=== PATIENT | female | born 1955 | race Caucasian/White ===

== ENCOUNTER 2016-12-15 09:15 | Inpatient (IN) | payer BC ==
[~2016-12-15 09:15] MED LIST: Lactated Ringers 1,000 ML IV SCH; Lidocaine 1%/Sod Bicarbonate in NS 8.4% 1 ML Syringe PRN; Sodium Chloride 0.9% 10 ML Syringe FLUSH PRN
[2016-12-15] MEDS ORDERED: Bupivacaine 0.25% 30 ML SDV ONE (09:16)
[2016-12-15] MEDS ORDERED: ceFAZolin 1 GM Vial ONE ×2 (09:16→09:31)
[2016-12-15] MEDS ORDERED: Vancomycin 1 GM SDV ONE (09:16)
[2016-12-15] MEDS ORDERED: Propofol 200 MG/20 ML SDV ONE ×2 (09:31→09:59)
[2016-12-15] MEDS ORDERED: Lactated Ringers 1,000 ML ONE ×2 (09:31→12:02)
[2016-12-15] MEDS ORDERED: fentaNYL 100 MCG/2 ML SDV ONE (09:31)
[2016-12-15] MEDS ORDERED: Midazolam 1 MG/ML 2 ML SDV ONE (09:32)
[2016-12-15] MEDS ORDERED: Morphine PF 10 MG/10 ML SDV ONE (09:34)
--- NOTE | 2016-12-15 09:39 | PCM.PREANE ---
Preanesthetic Assessment - Anesthesia/Transfusion/Family Hx Anesthesia History: Prior Anesthesia Reaction Type of Anesthesia Reaction: Excessive Nausea/Vomiting Transfusion History: No Prior Transfusion(s) - Review of Systems General: No Symptoms Pulmonary: No Symptoms Cardiovascular: No Symptoms Gastrointestinal: No Symptoms Neurological: No Symptoms Other: Reports: Easy Bruising - Physical Assessment NPO Status Date: 12/14/16 NPO Status Time: 23:00 Pulse: 60 O2 Sat by Pulse Oximetry: 96 Respiratory Rate: 20 Blood Pressure: 139/77 Temperature: 98.5 F Height: 5 ft Weight: 57 kg ASA Class: 1 Mental Status: Alert & Oriented x3 Airway Class: Mallampati = 1 Dentition: Reports: Normal Dentition Thyro-Mental Finger Breadths: 3 Mouth Opening Finger Breadths: 3 ROM/Head Extension: Full Lungs: Clear to Auscultation, Normal Respiratory Effort Cardiovascular: Regular Rate, Regular Rhythm - Lab Values: 12/01/16 Hgb 14.4 Plt 224 BUN 14 Cr 0.80 Lytes WNL - Imaging/EKG Impressions: 12/01 EKG SB 57 - Allergies Allergies/Adverse Reactions: Allergies Allergy/AdvReac Type Severity Reaction Status Date / Time iodine Allergy Severe Rash Verified 12/12/16 13:34 - Blood Blood Available: No - Acknowledgements Anesthesia Type Planned: Spinal Pt an Appropriate Candidate for the Planned Anesthesia: Yes Alternatives and Risks of Anesthesia Discussed w Pt/Guardian: Yes Pt/Guardian Understands and Agrees with Anesthesia Plan: Yes PreAnesthesia Questionnaire HEENT History: Reports: Impaired Vision Cardiovascular History: Reports: None Respiratory History: Reports: None Gastrointestinal History: Reports: Other (See Below) Other Gastrointestinal History: , post operative nausea and vomiting Genitourinary History: Reports: Urinary Incontinence Other OB/BYN History: 3vaginal deliveries, uterine fibroids Musculoskeletal History: Reports: Osteoarthritis, Other (See Below) Other Musculoskeletal History: bulging of cerical intervertebreal disc Neurological History: Reports: None Psychiatric History: Reports: None Endocrine/Metabolic History: Reports: None Hematologic History: Reports: None Immunologic History: Reports: None Oncologic (Cancer) History: Reports: None Dermatologic History: Reports: Eczema - Past Surgical History Head Surgeries/Procedures: Reports: None HEENT Surgical History: Reports: Tonsillectomy Cardiovascular Surgical History: Reports: None Respiratory Surgical History: Reports: None GI Surgical History: Reports: Appendectomy, Colonoscopy, EGD Female Surgical History: Reports: Hysterectomy, Other (See Below) Other Female Surgeries/Procedures: bladder sling Endocrine Surgical History: Reports: None Neurological Surgical History: Reports: None Musculoskeletal Surgical History: Reports: Arthroscopic Knee, Knee Replacement Other Musculoskeletal Surgeries/Procedures:: rt partial knee replacement, R meniscus surgery Oncologic Surgical History: Reports: None - SUBSTANCE USE Smoking Status *Q: Never Smoker Tobacco Use Within Last Twelve Months: No Second Hand Smoke Exposure: No Days Per Week of Alcohol Use: 1 (couple times a month) Recreational Drug Use History: No - HOME MEDS Home Medications: Home Meds Ascorbate Calcium [Vitamin C] 500 mg PO DAILY 12/12/16 [History] Cholecalciferol (Vitamin D3) [Vitamin D3] 5,000 unit PO DAILY 12/12/16 [History] Ralph-3/DHA/Epa/Fish Oil [Ralph 3 500 Softgel] 1 cap PO DAILY 12/12/16 [History] - CURRENT (IN HOUSE) MEDS Current Meds: Current Medications Bisacodyl (Dulcolax) 5 mg PO DAILY PRN PRN Reason: Constipation Morphine Sulfate 8 mg/Epinephrine HCl 0.3 mg/Cefuroxime Sodium 750 mg/Ketorolac Tromethamine 30 mg/Sodium Chloride 27.9 ml 0 mg .XX ONETIME ONE Stop: 12/15/16 10:31 Cyclobenzaprine HCl (Flexeril) 10 mg PO TID PRN PRN Reason: Spasms Docusate Sodium (Colace) 100 mg PO BID [facility] Famotidine (Pepcid) 20 mg PO BID [facility] Lactated Ringer's (Ringers, Lactated) 1,000 mls @ 125 mls/hr IV ASDIRECTED [facility] Stop: 12/15/16 23:00 Cefazolin Sodium/Dextrose 2 gm (/ Premix) 50 mls @ 100 mls/hr IV Q8H [facility] Stop: 12/15/16 23:44 Lidocaine/Sodium Bicarbonate (Buffered Lidocaine 1% In Ns 8.4%) 0.25 ml .XX ONETIME PRN PRN Reason: Prior to IV Start Stop: 12/15/16 18:00 Magnesium Hydroxide (Milk Of Magnesia) 30 ml PO BID PRN PRN Reason: Constipation Morphine Sulfate (Morphine) 2 mg IVPUSH Q2H PRN PRN Reason: Breakthrough Pain Multivitamins (Thera) 1 each PO WITHBREAKFAST [facility] Naloxone HCl (Narcan) 0.1 mg IVPUSH Q5M PRN PRN Reason: Oversedation Ondansetron HCl (Zofran) 4 mg IVPUSH Q6H PRN PRN Reason: Nausea/Vomiting Oxycodone/Acetaminophen (Percocet 325-5 Mg) 1 - 2 tab PO Q4H PRN PRN Reason: Pain Rivaroxaban (Xarelto) 10 mg PO DAILY [facility] Senna (Senna) 8.6 mg PO BID PRN PRN Reason: Constipation Sodium Chloride (Saline Flush) 10 ml FLUSH ASDIRECTED PRN PRN Reason: Keep Vein Open Stop: 12/15/16 18:00 Discontinued Medications Bupivacaine HCl (Marcaine 0.25%) Confirm Administered Dose 30 ml .ROUTE .STK- MED ONE Stop: 12/15/16 09:17 Cefazolin Sodium (Ancef) Confirm Administered Dose 2 gm .ROUTE .STK-MED ONE Stop: 12/15/16 09:32 Cefazolin Sodium (Ancef) Confirm Administered Dose 2 gm .ROUTE .STK-MED ONE Stop: 12/15/16 09:17 Fentanyl (Sublimaze) Confirm Administered Dose 100 mcg .ROUTE .STK-MED ONE Stop: 12/15/16 09:32 Lactated Ringer's (Ringers, Lactated) Confirm Administered Dose 1,000 mls @ as directed .ROUTE .STK-MED ONE Stop: 12/15/16 09:32 Midazolam HCl (Versed 1 Mg/Ml) Confirm Administered Dose 2 mg .ROUTE .STK-MED ONE Stop: 12/15/16 09:33 Morphine Sulfate (Duramorph Pf) Confirm Administered Dose 10 mg .ROUTE .STK-MED ONE Stop: 12/15/16 09:35 Propofol (Diprivan 20 Ml) Confirm Administered Dose 200 mg .ROUTE .STK-MED ONE Stop: 12/15/16 09:32 Tranexamic Acid (Cyklokapron) Confirm Administered Dose 1,000 mg .ROUTE .STK- MED ONE Stop: 12/15/16 09:16 Vancomycin HCl (Vancomycin) Confirm Administered Dose 1 gm .ROUTE .STK-MED ONE Stop: 12/15/16 09:17
[2016-12-15] MEDS ORDERED: Phenylephrine 1% 10 MG/ML SDV ONE (10:53)
[2016-12-15] MEDS: Morphine 8 MG, EPINEPHrine 0.3 MG, Cefuroxime 750 MG, Ketorolac 30 MG, Sodium Chloride ... ONE ×10 (11:41→13:55)
[2016-12-15] MEDS ORDERED: Ondansetron 4 MG/2 ML SDV ONE (11:47)
[2016-12-15] MEDS ORDERED: Naloxone 0.4 MG/ML SDV IVPUSH PRN (12:00)
[2016-12-15] MEDS ORDERED: Morphine 2 MG/ML Syringe IVPUSH PRN (12:00)
[2016-12-15] MEDS ORDERED: Sennosides 8.6 MG Tab PO PRN (12:00)
[2016-12-15] MEDS ORDERED: Magnesium Hydroxide 400 MG/5 ML Susp 30 ML Cup PO PRN (12:00)
[2016-12-15] MEDS ORDERED: Bisacodyl 5 MG Tab PO PRN (12:00)
[2016-12-15] MEDS ORDERED: Cyclobenzaprine 10 MG Tab PO PRN (12:00)
--- NOTE | 2016-12-15 12:25 | PCM.POSTAN ---
POST ANESTHESIA ASSESSMENT - MENTAL STATUS Mental Status: Alert, Oriented - VITAL SIGNS Pulse Rate: 90 SaO2: 96 Resp Rate: 16 Blood Pressure: 87/58 Temperature: 97.7 C - RESPIRATORY Respiratory Status: Respiratory Rate WNL, Airway Patent, O2 Saturation Stable - CARDIOVASCULAR CV Status: Pulse Rate WNL, Blood Pressure Stable - GASTROINTESTINAL GI Status: No Symptoms - PAIN Pain Score: 0 - POST OP HYDRATION Hydration Status: Adequate & Stable
[2016-12-15] MEDS ORDERED: fentaNYL 100 MCG/2 ML SDV IVPUSH PRN (12:26)
[2016-12-15] MEDS ORDERED: HYDROmorphone 0.5 MG/0.5 ML Syringe IVPUSH PRN (12:26)
--- NOTE | 2016-12-15 13:32 | CR ---
Left knee: AP and lateral views of the left knee were obtained. Comparison: No previous knee study. Left knee prosthesis is seen. Components are aligned. Soft tissue air is noted compatible with the surgical procedure. Underlying bony structures are intact. Impression: 1. Satisfactory radiographic appearance of recently placed left knee prosthesis. Diagnostic code #2
[2016-12-15] MEDS: Ondansetron 4 MG/2 ML SDV IVPUSH PRN (15:05)
--- NOTE | 2016-12-15 15:14 | PCM.CONS ---
H&P History of Present Illness - General Date of Service: 12/15/16 Admit Problem/Dx: Admission Diagnosis/Problem Admission Diagnosis/Problem Osteoarthritis of knee Source of Information: Patient, Old Records, RN History Limitations: Reports: No Limitations - History of Present Illness Initial Comments - Free Text/Narative: Meagan Manrique is a 61 yo female s/p left TKA with Dr. Toro this morning. Hospitalist service is consulted for postoperative medical management. PMH includes Impaired vision, prior post-operative N&V, urinary incontinence, osteoarthritis, bulging of cervical intervertebral disk and eczema. Thus far postoperatively she is resting comfortably, pain under good pain control. No nausea. No SOB, CP, palpiataitons. Left Knee Pain Score (Numeric/FACES): 4 (Controlled) - Related Data Allergies/Adverse Reactions: Allergies Allergy/AdvReac Type Severity Reaction Status Date / Time iodine Allergy Severe Rash Verified 12/15/16 10:29 Home Medications: Home Meds Ascorbate Calcium [Vitamin C] 500 mg PO DAILY 12/12/16 [History] Cholecalciferol (Vitamin D3) [Vitamin D3] 5,000 unit PO DAILY 12/12/16 [History] Odell-3/DHA/Epa/Fish Oil [Odell 3 500 Softgel] 1 cap PO DAILY 12/12/16 [History] Past Medical History HEENT History: Reports: Impaired Vision Cardiovascular History: Reports: None Respiratory History: Reports: None Gastrointestinal History: Reports: Other (See Below) Other Gastrointestinal History: post operative nausea and vomiting Genitourinary History: Reports: Urinary Incontinence Other OB/BYN History: 3vaginal deliveries, uterine fibroids Musculoskeletal History: Reports: Osteoarthritis, Other (See Below) Other Musculoskeletal History: bulging of cerical intervertebreal disc Neurological History: Reports: None Psychiatric History: Reports: None Endocrine/Metabolic History: Reports: None Hematologic History: Reports: None Immunologic History: Reports: None Oncologic (Cancer) History: Reports: None Dermatologic History: Reports: Eczema - Past Surgical History Head Surgeries/Procedures: Reports: None HEENT Surgical History: Reports: Tonsillectomy Cardiovascular Surgical History: Reports: None Respiratory Surgical History: Reports: None GI Surgical History: Reports: Appendectomy, Colonoscopy, EGD Female Surgical History: Reports: Hysterectomy, Other (See Below) Other Female Surgeries/Procedures: bladder sling Endocrine Surgical History: Reports: None Neurological Surgical History: Reports: None Musculoskeletal Surgical History: Reports: Arthroscopic Knee, Knee Replacement Other Musculoskeletal Surgeries/Procedures:: rt partial knee replacement, R meniscus surgery Oncologic Surgical History: Reports: None Social & Family History - Family History Psychiatric: Reports: None - Tobacco Use Smoking Status *Q: Never Smoker Second Hand Smoke Exposure: No - Caffeine Use Caffeine Use: Reports: Coffee - Alcohol Use Days Per Week of Alcohol Use: 1 (couple times a month) - Recreational Drug Use Recreational Drug Use: No Drug Use in Last 12 Months: No H&P Review of Systems - Review of Systems: Review Of Systems: See Below General: Reports: No Symptoms HEENT: Reports: No Symptoms Pulmonary: Reports: No Symptoms Cardiovascular: Reports: No Symptoms Gastrointestinal: Reports: No Symptoms Genitourinary: Reports: No Symptoms Musculoskeletal: Reports: Joint Pain Skin: Reports: No Symptoms Psychiatric: Reports: No Symptoms Neurological: Reports: No Symptoms Hematologic/Lymphatic: Reports: No Symptoms Immunologic: Reports: No Symptoms Exam - Exam Exam: See Below - Vital Signs Vital Signs: Last Vital Signs Temp 97.4 F 12/15/16 13:35 Pulse 69 12/15/16 13:35 Resp 14 12/15/16 13:35 BP 99/51 L 12/15/16 13:35 Pulse Ox 100 12/15/16 13:35 Weight: 125 lb 10.616 oz - Exam Quality Assessment: Supplemental Oxygen (1L), Urinary Catheter, DVT Prophylaxis General: Alert, Oriented, Cooperative HEENT: Conjunctiva Clear, EACs Clear, Hearing Intact, Mucosa Moist & [place], Nares Patent, Normal Nasal Septum, Posterior Pharynx Clear, Pupils Equal, Pupils Reactive Neck: Supple, Trachea Midline. No: JVD Lungs: Clear to Auscultation, Normal Respiratory Effort Cardiovascular: Regular Rate, Regular Rhythm GI/Abdominal Exam: Normal Bowel Sounds, Soft, Non-Tender, No Organomegaly, No Distention, No Abnormal Bruit, No Mass (Female) Exam: Deferred Rectal (Female) Exam: Deferred Back Exam: Normal Inspection, Full Range of Motion Extremities: Normal Inspection, Non-Tender, No Pedal Edema, Normal Capillary Refill, Limited Range of Motion, Other (Left leg bandaged. Dressing dry and intact ) Peripheral Pulses: 2+: Radial (L), Radial (R), Posterior Tibial (L), Posterior Tibial (R), Dorsalis Pedis (L), Dorsalis Pedis (R) Skin: Warm, Dry, Intact Neurological: Cranial Nerves Intact (grossly) Neuro Extensive - Mental Status: Alert, Oriented x3, Normal Mood/Affect, Normal Cognition, Memory Intact, Other ("sleepy") Neuro Extensive - Motor, Sensory, Reflexes: CN II-XII Intact Psychiatric: Alert, Normal Affect, Normal Mood Consult PN Assessment/Plan POD#: 0 Procedures: Procedures CHEST X-RAY 2VW FRONTAL&LATL (10/27/13) COMPLETE CBC W/AUTO DIFF WBC (10/27/13) CT THORAX W/O DYE (05/14/15) DXA BONE DENSITY AXIAL (05/04/15) EGD BIOPSY SINGLE/MULTIPLE (02/28/15) ELECTROCARDIOGRAM TRACING (10/27/13) EMERGENCY DEPT VISIT (10/27/13) FIBRIN DEGRADATION QUANT (10/27/13) MRI NECK SPINE W/O DYE (01/26/15) PARATHYRD PLANAR W/SPECT&CT (03/02/15) ROUTINE VENIPUNCTURE (10/27/13) TISSUE EXAM BY PATHOLOGIST (02/28/15) X-RAY EXAM UNILAT RIBS/CHEST (05/04/15) (1) Osteoarthritis SNOMED Code(s): 117565647 Code(s): M19.90 - UNSPECIFIED OSTEOARTHRITIS, UNSPECIFIED SITE Priority: High Current Visit: Yes Qualifiers: Osteoarthritis location: knee Osteoarthritis type: primary Laterality: left Qualified Code(s): M17.12 - Unilateral primary osteoarthritis, left knee (2) Status post total left knee replacement SNOMED Code(s): 0240356115143 Code(s): Z96.652 - PRESENCE OF LEFT ARTIFICIAL KNEE JOINT Priority: High Current Visit: Yes Problem List Initiated/Reviewed/Updated: Yes Plan: Acute: Post-Operative Care State - She is clinically stable - Continue to monitor for hemodynamic instability S/p Left Total Knee Arthroplasty - Stable - DVT and Pain Management as per primary team Hx/o left Knee Pain - Pain Management as per primary team Chronic: Urinary incontinence Osteoarthritis Bulging of cervical intervertebral disk Eczema Plan: She is clinically stable Routine AM labs Continue home meds PT/OT consult IS q2 awake Thank you for the opportunity to participate in the management of this patient. Requesting Provider: Dr. Muna Date Consult Requested: 12/15/16 Reason for Consult: Post-operative care Patient History Reviewed: Yes Admission H&P Reviewed: Yes
[2016-12-15] MEDS ORDERED: Scopolamine 1.5 MG Transdermal Patch TOP ONE (15:57)
[2016-12-15] MEDS: ceFAZolin 2 GM in Premix Bag 1 BAG IV SCH (17:48)
[2016-12-15] MEDS ORDERED: FLU Vacc QS 2017-18 (6mos UP)/PF 60 MCG/0.5 ML Syringe IM ONE (18:00)
[2016-12-15] MEDS ORDERED: Metoclopramide 10 MG/2 ML SDV IVPUSH ONE (18:43)
[2016-12-15] MEDS: Acetaminophen/oxyCODONE 325-5 MG Tab PO PRN (20:45)
[2016-12-15] MEDS: Famotidine 20 MG Tab PO SCH (20:45)
[2016-12-15] MEDS: Docusate Sodium 100 MG Cap PO SCH (20:45)
[2016-12-15] MEDS ORDERED: diphenhydrAMINE 50 MG/ML SDV IVPUSH ONE (21:00)
[2016-12-16] MEDS: ceFAZolin 2 GM in Premix Bag 1 BAG IV SCH ×2 (01:30→09:57)
[2016-12-16] MEDS: Acetaminophen/oxyCODONE 325-5 MG Tab PO PRN ×3 (02:22→12:26)
[2016-12-16] MEDS: Ondansetron 4 MG/2 ML SDV IVPUSH PRN ×2 (02:29→11:22)
[2016-12-16] MEDS ORDERED: Multivitamins,Therapeutic Tab PO SCH (07:00)
--- NOTE | 2016-12-16 08:39 | PCM.CONSN ---
- General Info Date of Service: 12/16/16 Admission Dx/Problem (Free Text): Admission Diagnosis/Problem Admission Diagnosis/Problem Osteoarthritis of knee POD #[address] Toro Doing well, pain controlled. No nausea; vomiting comes on suddenly but is not accompanied by nausea. Working with PT/OT. Plans for dc home today, she feels comfortable with this also. PT states doing very well. Functional Status: Reports: Pain Controlled, Tolerating Diet, Ambulating, Urinating, Incentive Spirometry. Denies: New Symptoms - Review of Systems General: Reports: No Symptoms HEENT: Reports: No Symptoms Pulmonary: Reports: No Symptoms Cardiovascular: Reports: No Symptoms Gastrointestinal: Reports: No Symptoms, Vomiting (occasional--improved from yesterday). Denies: Abdominal Pain, Nausea Genitourinary: Reports: No Symptoms Musculoskeletal: Reports: Leg Pain Skin: Reports: No Symptoms Neurological: Reports: No Symptoms Psychiatric: Reports: No Symptoms - Patient Data Vitals - Most Recent: Last Vital Signs Temp 97.7 F 12/16/16 07:43 Pulse 55 L 12/16/16 07:39 Resp 18 12/16/16 07:39 BP 116/86 12/16/16 07:39 Pulse Ox 100 12/16/16 08:22 Weight - Most Recent: 131 lb 11.2 oz I&O - Last 24 Hours: Intake & Output 12/15/16 12/16/16 12/16/16 22:59 06:59 14:59 Intake Total 1050 800 Output Total 1200 800 Balance -150 0 Lab Results Last 24 Hours: Laboratory Results - last 24 hr 12/16/16 12/16/16 Range/Units 06:50 06:50 WBC 11.46 H (3.98-10.04) K/mm3 RBC 3.89 L (3.98-5.22) M/mm3 Hgb 11.5 (11.2-15.7) gm/L Hct 36.3 (34.1-44.9) % MCV 93.3 (79.4-94.8) fl MCH 29.6 (25.6-32.2) pg MCHC 31.7 L (32.2-35.5) g/dl RDW Std Deviation 42.4 (36.4-46.3) fL Plt Count 181 L (182-369) K/mm3 MPV 10.7 (9.4-12.3) fl Neut % (Auto) 74.0 H (34.0-71.1) % Lymph % (Auto) 15.6 L (19.3-51.7) % Barron % (Auto) 10.0 (4.7-12.5) % Eos % (Auto) 0.1 L (0.7-5.8) Baso % (Auto) 0.1 (0.1-1.2) % Neut # (Auto) 8.48 H (1.56-6.13) K/mm3 Lymph # (Auto) 1.79 (1.18-3.74) K/mm3 Barron # (Auto) 1.15 H (0.24-0.36) K/mm3 Eos # (Auto) 0.01 L (0.04-0.36) K/mm3 Baso # (Auto) 0.01 (0.01-0.08) K/mm3 Sodium 140 (136-145) mEq/L Potassium 4.2 (3.5-5.1) mEq/L Chloride 104 (98-107) mEq/L Carbon Dioxide 31 (21-32) mEq/L Anion Gap 9.2 (5-15) BUN 9 (7-18) mg/dL Creatinine 0.7 (0.55-1.02) mg/dL Est Cr Clr Drug Dosing 62.16 mL/min Estimated GFR (MDRD) > 60 (>60) mL/min BUN/Creatinine Ratio 12.9 L (14-18) Glucose 102 (74-106) mg/dL Calcium 10.1 (8.5-10.1) mg/dL Total Bilirubin 0.5 (0.2-1.0) mg/dL AST 23 (15-37) U/L ALT 25 (14-59) U/L Alkaline Phosphatase 56 (46-116) U/L Total Protein 6.3 L (6.4-8.2) g/dl Albumin 3.2 L (3.4-5.0) g/dl Globulin 3.1 gm/dL Albumin/Globulin Ratio 1.0 (1-2) Med Orders - Current: Current Medications Bisacodyl (Dulcolax) 5 mg PO DAILY PRN PRN Reason: Constipation Cyclobenzaprine HCl (Flexeril) 10 mg PO TID PRN PRN Reason: Spasms Docusate Sodium (Colace) 100 mg PO BID [facility] Last Admin: 12/15/16 20:45 Dose: 100 mg Famotidine (Pepcid) 20 mg PO BID [facility] Last Admin: 12/15/16 20:45 Dose: 20 mg Cefazolin Sodium/Dextrose 2 gm (/ Premix) 50 mls @ 100 mls/hr IV Q8H [facility] Stop: 12/16/16 10:59 Last Admin: 12/16/16 01:30 Dose: 100 mls/hr Magnesium Hydroxide (Milk Of Magnesia) 30 ml PO BID PRN PRN Reason: Constipation Morphine Sulfate (Morphine) 2 mg IVPUSH Q2H PRN PRN Reason: Breakthrough Pain Last Admin: 12/16/16 07:06 Dose: 2 mg Multivitamins (Thera) 1 each PO WITHBREAKFAST [facility] Naloxone HCl (Narcan) 0.1 mg IVPUSH Q5M PRN PRN Reason: Oversedation Ondansetron HCl (Zofran) 4 mg IVPUSH Q6H PRN PRN Reason: Nausea/Vomiting Last Admin: 12/16/16 02:29 Dose: 4 mg Oxycodone/Acetaminophen (Percocet 325-5 Mg) 1 - 2 tab PO Q4H PRN PRN Reason: Pain Last Admin: 12/16/16 02:22 Dose: 2 tab Rivaroxaban (Xarelto) 10 mg PO DAILY [facility] Senna (Senna) 8.6 mg PO BID PRN PRN Reason: Constipation Discontinued Medications Bupivacaine HCl (Marcaine 0.25%) Confirm Administered Dose 30 ml .ROUTE .STK- MED ONE Stop: 12/15/16 09:17 Last Admin: 12/15/16 11:42 Dose: 30 ml Cefazolin Sodium (Ancef) Confirm Administered Dose 2 gm .ROUTE .STK-MED ONE Stop: 12/15/16 09:32 Last Admin: 12/15/16 11:38 Dose: 2 gm Cefazolin Sodium (Ancef) Confirm Administered Dose 2 gm .ROUTE .STK-MED ONE Stop: 12/15/16 09:17 Morphine Sulfate 8 mg/Epinephrine HCl 0.3 mg/Cefuroxime Sodium 750 mg/Ketorolac Tromethamine 30 mg/Sodium Chloride 27.9 ml 0 mg .XX ONETIME ONE Stop: 12/15/16 10:31 Last Admin: 12/15/16 13:55 Dose: Not Given Diphenhydramine HCl (Benadryl) 25 mg IVPUSH ONETIME ONE Stop: 12/15/16 21:01 Last Admin: 12/15/16 20:45 Dose: Not Given Fentanyl (Sublimaze) Confirm Administered Dose 100 mcg .ROUTE .STK-MED ONE Stop: 12/15/16 09:32 Fentanyl (Sublimaze) 50 mcg IVPUSH Q5M PRN PRN Reason: pain Stop: 12/15/16 14:30 Hydromorphone HCl (Dilaudid) 0.5 mg IVPUSH Q15M PRN PRN Reason: Pain (severe 7-10) Stop: 12/15/16 14:30 Lactated Ringer's (Ringers, Lactated) 1,000 mls @ 125 mls/hr IV ASDIRECTED [facility] Stop: 12/15/16 23:00 Last Admin: 12/15/16 09:35 Dose: 125 mls/hr Lactated Ringer's (Ringers, Lactated) Confirm Administered Dose 1,000 mls @ as directed .ROUTE .STK-MED ONE Stop: 12/15/16 09:32 Lactated Ringer's (Ringers, Lactated) Confirm Administered Dose 1,000 mls @ as directed .ROUTE .STK-MED ONE Stop: 12/15/16 12:03 Lidocaine/Sodium Bicarbonate (Buffered Lidocaine 1% In Ns 8.4%) 0.25 ml .XX ONETIME PRN PRN Reason: Prior to IV Start Stop: 12/15/16 18:00 Last Admin: 12/15/16 09:34 Dose: 0.25 ml Metoclopramide HCl (Reglan) 5 mg IVPUSH ONETIME ONE Stop: 12/15/16 18:44 Last Admin: 12/15/16 18:56 Dose: 5 mg Midazolam HCl (Versed 1 Mg/Ml) Confirm Administered Dose 2 mg .ROUTE .STK-MED ONE Stop: 12/15/16 09:33 Morphine Sulfate (Duramorph Pf) Confirm Administered Dose 10 mg .ROUTE .STK-MED ONE Stop: 12/15/16 09:35 Ondansetron HCl (Zofran) Confirm Administered Dose 4 mg .ROUTE .STK-MED ONE Stop: 12/15/16 11:48 Phenylephrine HCl (Jaime-Synephrine) Confirm Administered Dose 10 mg .ROUTE .STK- MED ONE Stop: 12/15/16 10:54 Propofol (Diprivan 20 Ml) Confirm Administered Dose 200 mg .ROUTE .STK-MED ONE Stop: 12/15/16 09:32 Propofol (Diprivan 20 Ml) Confirm Administered Dose 200 mg .ROUTE .STK-MED ONE Stop: 12/15/16 10:00 Scopolamine (Transderm-Scop) 1.5 mg TOP ONETIME ONE Stop: 12/15/16 15:58 Last Admin: 12/15/16 16:23 Dose: 1.5 mg Sodium Chloride (Saline Flush) 10 ml FLUSH ASDIRECTED PRN PRN Reason: Keep Vein Open Stop: 12/15/16 18:00 Tranexamic Acid (Cyklokapron) Confirm Administered Dose 1,000 mg .ROUTE .STK- MED ONE Stop: 12/15/16 09:16 Last Admin: 12/15/16 11:55 Dose: 1,000 mg Vancomycin HCl (Vancomycin) Confirm Administered Dose 1 gm .ROUTE .STK-MED ONE Stop: 12/15/16 09:17 Last Admin: 12/15/16 11:52 Dose: 1 gm - Exam Quality Assessment: Supplemental Oxygen, DVT Prophylaxis General: Alert, Oriented, Cooperative, No Acute Distress HEENT: Pupils Equal, EOMI, Mucous Membr. Moist/[place] Neck: Supple Lungs: Clear to Auscultation, Normal Respiratory Effort Cardiovascular: Regular Rate, Regular Rhythm GI/Abdominal Exam: Normal Bowel Sounds, Soft, Non-Tender (Female) Exam: Deferred Extremities: Other (teds/SCD's/ice) Peripheral Pulses: 2+: Dorsalis Pedis (L), Dorsalis Pedis (R) Skin: Warm, Dry Neurological: No New Focal Deficit Psy/Mental Status: Alert, Normal Affect, Normal Mood Consult PN Assessment/Plan POD#: 1 Procedures: Procedures CHEST X-RAY 2VW FRONTAL&LATL (10/27/13) COMPLETE CBC W/AUTO DIFF WBC (10/27/13) CT THORAX W/O DYE (05/14/15) DXA BONE DENSITY AXIAL (05/04/15) EGD BIOPSY SINGLE/MULTIPLE (02/28/15) ELECTROCARDIOGRAM TRACING (10/27/13) EMERGENCY DEPT VISIT (10/27/13) FIBRIN DEGRADATION QUANT (10/27/13) MRI NECK SPINE W/O DYE (01/26/15) PARATHYRD PLANAR W/SPECT&CT (03/02/15) ROUTINE VENIPUNCTURE (10/27/13) TISSUE EXAM BY PATHOLOGIST (02/28/15) X-RAY EXAM UNILAT RIBS/CHEST (05/04/15) (1) Status post total left knee replacement SNOMED Code(s): 0577246887972 Code(s): Z96.652 - PRESENCE OF LEFT ARTIFICIAL KNEE JOINT Priority: High Current Visit: Yes (2) Osteoarthritis SNOMED Code(s): 549462610 Code(s): M19.90 - UNSPECIFIED OSTEOARTHRITIS, UNSPECIFIED SITE Priority: High Current Visit: Yes Qualifiers: Osteoarthritis location: knee Osteoarthritis type: primary Laterality: left Qualified Code(s): M17.12 - Unilateral primary osteoarthritis, left knee (3) Gastritis and duodenitis SNOMED Code(s): 678425835 Code(s): K29.90 - GASTRODUODENITIS, UNSPECIFIED, WITHOUT BLEEDING Priority : Medium Current Visit: No (4) Gastric ulcer SNOMED Code(s): 333081127 Code(s): K25.9 - GASTRIC ULCER, UNSP ACUTE OR CHRONIC, W/O HEMOR OR PERF Priority: Medium Current Visit: No Qualifiers: Gastric ulcer chronicity: unspecified ulcer chronicity Gastric ulcer complication status: unspecified whether hemorrhage or perforation present Qualified Code(s): K25.9 - Gastric ulcer, unspecified as acute or chronic, without hemorrhage or perforation (5) Duodenal ulcer SNOMED Code(s): 34854068 Code(s): K26.9 - DUODENAL ULCER, UNSP ACUTE OR CHRONIC, W/O HEMOR OR PERF Priority: Medium Current Visit: No Problem List Initiated/Reviewed/Updated: Yes Plan: I/P: S/P Lt TKA- POD #1, Dr. Toro -Pain management and DVT prophylax per primary team/Ortho -PT/OT -RT/IS -Hgb 11.5 Hx of gastric/duodenal ulcer- avoid ASA-xarelto for DVT prophylax -Currently no abd pain -Postoperative vomiting, no nausea. Hgb stable. VSS. Close monitoring-- vomiting is improved from yesterday. Tolerated breakfast, no vomiting. Chronic: Urinary incontinence Bulging of cervical intervertebral disk Eczema Other: GI prophylax CM/SW for assist with DC planning. -Medically stable. Labs and VSS. OK from Hospitalist standpoint for DC home today if no persistent vomiting. Patient is full code status.
[2016-12-16] MEDS: Docusate Sodium 100 MG Cap PO SCH (08:51)
[2016-12-16] MEDS: Famotidine 20 MG Tab PO SCH (08:51)
[2016-12-16] MEDS ORDERED: Rivaroxaban 10 MG Tab PO SCH (09:00)
--- NOTE | 2016-12-16 10:50 | PCM48HPAN ---
Post Anesthesia Note - EVALUATION WITHIN 48HRS OF ANESTHETIC Vital Signs in Normal Range: Yes Patient Participated in Evaluation: Yes Respiratory Function Stable: Yes Airway Patent: Yes Cardiovascular Function Stable: Yes Hydration Status Stable: Yes Pain Control Satisfactory: Yes Nausea and Vomiting Control Satisfactory: No (Emesis about 20 min ago. Encourage sips and keep on top of meds) Mental Status Recovered: Yes
[2016-12-16 13:10] VITALS: BP 113/50
--- NOTE | 2016-12-17 08:04 | PCM.DCSUM1 ---
Discharge Summary - Hospital Course Brief History: Meagan is a 61 yo female who underwent left TKA with Dr. Toro on 12-15-2016. The procedure was completed under spinal anesthesia. The pt tolerated the procedure well and was admitted to the Medical-Surgical Unit. The pt's hospital course was uneventful. The pt's hemoglobin on POD#1 was 11.5. The pt participated in P.T. and O.T. and met inpatient therapy goals. The pt's surgical dressing remained clean and dry. On POD#1, Xarelto was initiated for VTE prophylaxis. SCDs and TEDs were also used. On POD#1, the pt was deemed appropriate for discharge to home with her . - Discharge Data Discharge Date: 12/16/16 Discharge Disposition: Home, Self-Care 01 Condition: Good - Patient Summary/Data Consults: Consultations 12/15/16 07:11 Consult to Physician [CONS] Routine OT Evaluation and Treatment [CONS] Routine 12/15/16 07:16 PT Evaluation and Treatment [CONS] Routine - Patient Instructions Diet: Usual Diet as Tolerated Activity: Apply Ice, As Tolerated, Elevate Extremity, Full Weight Bearing Driving: Do Not Drive Showering/Bathing: May Shower Wound/Incision Care: Keep Operative Site/Wound Site Clean and Dry, Do NOT Change Dressing Notify Provider of: Fever, Increased Pain, Swelling and Redness, Drainage, Nausea and/or Vomiting Other/Special Instructions: Please get up and moving around every hour while awake. This helps to prevent blood clots. Please use your walker and have help as needed. Take the Xarelto blood thinner medication daily. This also helps to prevent blood clots. Do the exercises you were taught in the Hospital. Schedule for P.T. Use the pain medication as needed. The medication may cause drowsiness and constipation. Contact your primary care provider for instructions if you are constipated. You may use a stool softener like docusate sodium or Colace 100mg twice daily and/or a laxative like Miralax daily for constipation. Use the ice machine often. Elevate the limb to decrease swelling. Keep the Mepilex dressing in place until follow-up at the Clinic. Notify the Clinic if the dressing is saturated. Wear the RALPH hose during the day and you may remove these at night. Eat a diet high in protein as this well help with healing. Schedule an appointment with your primary care provider for 'routine post-op care'. Call the Clinic with questions or concerns - [phone]. - Discharge Plan Prescriptions/Med Rec: Acetaminophen/oxyCODONE [Percocet 325-5 MG] 1 - 2 tab PO Q4H PRN #60 tablet PRN Reason: Pain Cyclobenzaprine [Flexeril] 10 mg PO Q8H PRN #40 tablet PRN Reason: muscle spasms Ondansetron [Zofran ODT] 4 mg PO Q6H PRN #20 tab.dis PRN Reason: Nausea Home Medications: Home Meds Ascorbate Calcium [Vitamin C] 500 mg PO DAILY 12/12/16 [History] Cholecalciferol (Vitamin D3) [Vitamin D3] 5,000 unit PO DAILY 12/12/16 [History] Jewett-3/DHA/Epa/Fish Oil [Jewett 3 500 Softgel] 1 cap PO DAILY 12/12/16 [History] Acetaminophen/oxyCODONE [Percocet 325-5 MG] 1 - 2 tab PO Q4H PRN #60 tablet 05/30 [Rx] Cyclobenzaprine [Flexeril] 10 mg PO Q8H PRN #40 tablet 12/16/16 [Rx] Docusate Sodium [Colace] 100 mg PO BID #60 cap 12/16/16 [Rx] Ondansetron [Zofran ODT] 4 mg PO Q6H PRN #20 tab.dis 12/16/16 [Rx] Rivaroxaban [Xarelto] 10 mg PO DAILY #28 tablet 12/16/16 [Rx] Patient Handouts: Rivaroxaban oral tablets, Total Knee Replacement, Care After , Ragx-my-Hdey, Total Knee Replacement, Whoj-pv-Dhyj, Knee Rehabilitation Guidelines Following Surgery Referrals: Mariah Cota PA-C [Physician [employer] Trol[employer] Inspecting Dispatcher] - (Please see Mariah Cota on Thursday12/23/16 at 9:15 AM and Thursday12/30/16 at 9:15 AM.) Danyell Rodgers PA-C [Primary Care Provider] - - Patient Data Vitals - Most Recent: Last Vital Signs Temp 98.1 F 12/16/16 13:07 Pulse 77 12/16/16 13:07 Resp 16 12/16/16 13:07 BP 113/50 L 12/16/16 13:07 Pulse Ox 98 12/16/16 13:07 Weight - Most Recent: 131 lb 11.2 oz I&O - Last 24 hours: Intake & Output 12/16/16 12/17/16 12/17/16 22:59 06:59 14:59 Intake Total 1040 Output Total 800 Balance 240 Med Orders - Current: Current Medications Discontinued Medications Bisacodyl (Dulcolax) 5 mg PO DAILY PRN PRN Reason: Constipation Bupivacaine HCl (Marcaine 0.25%) Confirm Administered Dose 30 ml .ROUTE .STK- MED ONE Stop: 12/15/16 09:17 Last Admin: 12/15/16 11:42 Dose: 30 ml Cefazolin Sodium (Ancef) Confirm Administered Dose 2 gm .ROUTE .STK-MED ONE Stop: 12/15/16 09:32 Last Admin: 12/15/16 11:38 Dose: 2 gm Cefazolin Sodium (Ancef) Confirm Administered Dose 2 gm .ROUTE .STK-MED ONE Stop: 12/15/16 09:17 Morphine Sulfate 8 mg/Epinephrine HCl 0.3 mg/Cefuroxime Sodium 750 mg/Ketorolac Tromethamine 30 mg/Sodium Chloride 27.9 ml 0 mg .XX ONETIME ONE Stop: 12/15/16 10:31 Last Admin: 12/15/16 13:55 Dose: Not Given Cyclobenzaprine HCl (Flexeril) 10 mg PO TID PRN PRN Reason: Spasms Diphenhydramine HCl (Benadryl) 25 mg IVPUSH ONETIME ONE Stop: 12/15/16 21:01 Last Admin: 12/15/16 20:45 Dose: Not Given Docusate Sodium (Colace) 100 mg PO BID [facility] Last Admin: 12/16/16 08:51 Dose: 100 mg Famotidine (Pepcid) 20 mg PO BID [facility] Last Admin: 12/16/16 08:51 Dose: 20 mg Fentanyl (Sublimaze) Confirm Administered Dose 100 mcg .ROUTE .STK-MED ONE Stop: 12/15/16 09:32 Fentanyl (Sublimaze) 50 mcg IVPUSH Q5M PRN PRN Reason: pain Stop: 12/15/16 14:30 Hydromorphone HCl (Dilaudid) 0.5 mg IVPUSH Q15M PRN PRN Reason: Pain (severe 7-10) Stop: 12/15/16 14:30 Lactated Ringer's (Ringers, Lactated) 1,000 mls @ 125 mls/hr IV ASDIRECTED [facility] Stop: 12/15/16 23:00 Last Admin: 12/15/16 09:35 Dose: 125 mls/hr Cefazolin Sodium/Dextrose 2 gm (/ Premix) 50 mls @ 100 mls/hr IV Q8H [facility] Stop: 12/16/16 10:59 Last Admin: 12/16/16 09:57 Dose: 100 mls/hr Lactated Ringer's (Ringers, Lactated) Confirm Administered Dose 1,000 mls @ as directed .ROUTE .STK-MED ONE Stop: 12/15/16 09:32 Lactated Ringer's (Ringers, Lactated) Confirm Administered Dose 1,000 mls @ as directed .ROUTE .STK-MED ONE Stop: 12/15/16 12:03 Lidocaine/Sodium Bicarbonate (Buffered Lidocaine 1% In Ns 8.4%) 0.25 ml .XX ONETIME PRN PRN Reason: Prior to IV Start Stop: 12/15/16 18:00 Last Admin: 12/15/16 09:34 Dose: 0.25 ml Magnesium Hydroxide (Milk Of Magnesia) 30 ml PO BID PRN PRN Reason: Constipation Metoclopramide HCl (Reglan) 5 mg IVPUSH ONETIME ONE Stop: 12/15/16 18:44 Last Admin: 12/15/16 18:56 Dose: 5 mg Midazolam HCl (Versed 1 Mg/Ml) Confirm Administered Dose 2 mg .ROUTE .STK-MED ONE Stop: 12/15/16 09:33 Morphine Sulfate (Morphine) 2 mg IVPUSH Q2H PRN PRN Reason: Breakthrough Pain Last Admin: 12/16/16 07:06 Dose: 2 mg Morphine Sulfate (Duramorph Pf) Confirm Administered Dose 10 mg .ROUTE .STK-MED ONE Stop: 12/15/16 09:35 Multivitamins (Thera) 1 each PO WITHBREAKFAST [facility] Last Admin: 12/16/16 09:04 Dose: 1 each Naloxone HCl (Narcan) 0.1 mg IVPUSH Q5M PRN PRN Reason: Oversedation Ondansetron HCl (Zofran) 4 mg IVPUSH Q6H PRN PRN Reason: Nausea/Vomiting Last Admin: 12/16/16 11:22 Dose: 4 mg Ondansetron HCl (Zofran) Confirm Administered Dose 4 mg .ROUTE .STK-MED ONE Stop: 12/15/16 11:48 Oxycodone/Acetaminophen (Percocet 325-5 Mg) 1 - 2 tab PO Q4H PRN PRN Reason: Pain Last Admin: 12/16/16 12:26 Dose: 2 tab Phenylephrine HCl (Jaime-Synephrine) Confirm Administered Dose 10 mg .ROUTE .STK- MED ONE Stop: 12/15/16 10:54 Propofol (Diprivan 20 Ml) Confirm Administered Dose 200 mg .ROUTE .STK-MED ONE Stop: 12/15/16 09:32 Propofol (Diprivan 20 Ml) Confirm Administered Dose 200 mg .ROUTE .STK-MED ONE Stop: 12/15/16 10:00 Rivaroxaban (Xarelto) 10 mg PO DAILY [facility] Last Admin: 12/16/16 08:51 Dose: 10 mg Scopolamine (Transderm-Scop) 1.5 mg TOP ONETIME ONE Stop: 12/15/16 15:58 Last Admin: 12/15/16 16:23 Dose: 1.5 mg Senna (Senna) 8.6 mg PO BID PRN PRN Reason: Constipation Sodium Chloride (Saline Flush) 10 ml FLUSH ASDIRECTED PRN PRN Reason: Keep Vein Open Stop: 12/15/16 18:00 Tranexamic Acid (Cyklokapron) Confirm Administered Dose 1,000 mg .ROUTE .STK- MED ONE Stop: 12/15/16 09:16 Last Admin: 12/15/16 11:55 Dose: 1,000 mg Vancomycin HCl (Vancomycin) Confirm Administered Dose 1 gm .ROUTE .STK-MED ONE Stop: 12/15/16 09:17 Last Admin: 12/15/16 11:52 Dose: 1 gm *Q Meaningful Use (DIS) - VTE *Q VTE Criteria *Q: - Stroke *Q Stroke Criteria *Q: - AMI *Q AMI Criteria *Q:
--- NOTE | 2016-12-17 08:06 | PCM.SURGPN ---
- General Info Date of Service: 12/16/16 POD#: 1 Functional Status: Reports: Pain Controlled, Tolerating Diet, Ambulating, Urinating, Incentive Spirometry - Review of Systems General: Denies: Fever, Chills Musculoskeletal: Reports: Other (The pt reports left knee pain is controlled.) - Patient Data Vitals - Most Recent: Last Vital Signs Temp 98.1 F 12/16/16 13:07 Pulse 77 12/16/16 13:07 Resp 16 12/16/16 13:07 BP 113/50 L 12/16/16 13:07 Pulse Ox 98 12/16/16 13:07 Weight - Most Recent: 131 lb 11.2 oz I&O - Last 24 Hours: Intake & Output 12/16/16 12/17/16 12/17/16 22:59 06:59 14:59 Intake Total 1040 Output Total 800 Balance 240 Med Orders - Current: Current Medications Discontinued Medications Bisacodyl (Dulcolax) 5 mg PO DAILY PRN PRN Reason: Constipation Bupivacaine HCl (Marcaine 0.25%) Confirm Administered Dose 30 ml .ROUTE .STK- MED ONE Stop: 12/15/16 09:17 Last Admin: 12/15/16 11:42 Dose: 30 ml Cefazolin Sodium (Ancef) Confirm Administered Dose 2 gm .ROUTE .STK-MED ONE Stop: 12/15/16 09:32 Last Admin: 12/15/16 11:38 Dose: 2 gm Cefazolin Sodium (Ancef) Confirm Administered Dose 2 gm .ROUTE .STK-MED ONE Stop: 12/15/16 09:17 Morphine Sulfate 8 mg/Epinephrine HCl 0.3 mg/Cefuroxime Sodium 750 mg/Ketorolac Tromethamine 30 mg/Sodium Chloride 27.9 ml 0 mg .XX ONETIME ONE Stop: 12/15/16 10:31 Last Admin: 12/15/16 13:55 Dose: Not Given Cyclobenzaprine HCl (Flexeril) 10 mg PO TID PRN PRN Reason: Spasms Diphenhydramine HCl (Benadryl) 25 mg IVPUSH ONETIME ONE Stop: 12/15/16 21:01 Last Admin: 12/15/16 20:45 Dose: Not Given Docusate Sodium (Colace) 100 mg PO BID [facility] Last Admin: 12/16/16 08:51 Dose: 100 mg Famotidine (Pepcid) 20 mg PO BID [facility] Last Admin: 12/16/16 08:51 Dose: 20 mg Fentanyl (Sublimaze) Confirm Administered Dose 100 mcg .ROUTE .STK-MED ONE Stop: 12/15/16 09:32 Fentanyl (Sublimaze) 50 mcg IVPUSH Q5M PRN PRN Reason: pain Stop: 12/15/16 14:30 Hydromorphone HCl (Dilaudid) 0.5 mg IVPUSH Q15M PRN PRN Reason: Pain (severe 7-10) Stop: 12/15/16 14:30 Lactated Ringer's (Ringers, Lactated) 1,000 mls @ 125 mls/hr IV ASDIRECTED [facility] Stop: 12/15/16 23:00 Last Admin: 12/15/16 09:35 Dose: 125 mls/hr Cefazolin Sodium/Dextrose 2 gm (/ Premix) 50 mls @ 100 mls/hr IV Q8H [facility] Stop: 12/16/16 10:59 Last Admin: 12/16/16 09:57 Dose: 100 mls/hr Lactated Ringer's (Ringers, Lactated) Confirm Administered Dose 1,000 mls @ as directed .ROUTE .STK-MED ONE Stop: 12/15/16 09:32 Lactated Ringer's (Ringers, Lactated) Confirm Administered Dose 1,000 mls @ as directed .ROUTE .STK-MED ONE Stop: 12/15/16 12:03 Lidocaine/Sodium Bicarbonate (Buffered Lidocaine 1% In Ns 8.4%) 0.25 ml .XX ONETIME PRN PRN Reason: Prior to IV Start Stop: 12/15/16 18:00 Last Admin: 12/15/16 09:34 Dose: 0.25 ml Magnesium Hydroxide (Milk Of Magnesia) 30 ml PO BID PRN PRN Reason: Constipation Metoclopramide HCl (Reglan) 5 mg IVPUSH ONETIME ONE Stop: 12/15/16 18:44 Last Admin: 12/15/16 18:56 Dose: 5 mg Midazolam HCl (Versed 1 Mg/Ml) Confirm Administered Dose 2 mg .ROUTE .STK-MED ONE Stop: 12/15/16 09:33 Morphine Sulfate (Morphine) 2 mg IVPUSH Q2H PRN PRN Reason: Breakthrough Pain Last Admin: 12/16/16 07:06 Dose: 2 mg Morphine Sulfate (Duramorph Pf) Confirm Administered Dose 10 mg .ROUTE .STK-MED ONE Stop: 12/15/16 09:35 Multivitamins (Thera) 1 each PO WITHBREAKFAST [facility] Last Admin: 12/16/16 09:04 Dose: 1 each Naloxone HCl (Narcan) 0.1 mg IVPUSH Q5M PRN PRN Reason: Oversedation Ondansetron HCl (Zofran) 4 mg IVPUSH Q6H PRN PRN Reason: Nausea/Vomiting Last Admin: 12/16/16 11:22 Dose: 4 mg Ondansetron HCl (Zofran) Confirm Administered Dose 4 mg .ROUTE .STK-MED ONE Stop: 12/15/16 11:48 Oxycodone/Acetaminophen (Percocet 325-5 Mg) 1 - 2 tab PO Q4H PRN PRN Reason: Pain Last Admin: 12/16/16 12:26 Dose: 2 tab Phenylephrine HCl (Jaime-Synephrine) Confirm Administered Dose 10 mg .ROUTE .STK- MED ONE Stop: 12/15/16 10:54 Propofol (Diprivan 20 Ml) Confirm Administered Dose 200 mg .ROUTE .STK-MED ONE Stop: 12/15/16 09:32 Propofol (Diprivan 20 Ml) Confirm Administered Dose 200 mg .ROUTE .STK-MED ONE Stop: 12/15/16 10:00 Rivaroxaban (Xarelto) 10 mg PO DAILY [facility] Last Admin: 12/16/16 08:51 Dose: 10 mg Scopolamine (Transderm-Scop) 1.5 mg TOP ONETIME ONE Stop: 12/15/16 15:58 Last Admin: 12/15/16 16:23 Dose: 1.5 mg Senna (Senna) 8.6 mg PO BID PRN PRN Reason: Constipation Sodium Chloride (Saline Flush) 10 ml FLUSH ASDIRECTED PRN PRN Reason: Keep Vein Open Stop: 12/15/16 18:00 Tranexamic Acid (Cyklokapron) Confirm Administered Dose 1,000 mg .ROUTE .STK- MED ONE Stop: 12/15/16 09:16 Last Admin: 12/15/16 11:55 Dose: 1,000 mg Vancomycin HCl (Vancomycin) Confirm Administered Dose 1 gm .ROUTE .STK-MED ONE Stop: 12/15/16 09:17 Last Admin: 12/15/16 11:52 Dose: 1 gm - Exam Wound/Incisions: Dressing Dry and Intact General: Alert, Cooperative, No Acute Distress Lungs: Normal Respiratory Effort Extremities: Other (NVS intact for BLE. Tacho's negative. Near independent SLR LLE.) - Problem List Review Problem List Initiated/Reviewed/Updated: Yes - My Orders Last 24 Hours: Active Orders 24 hr Category Date Time Status Ready for Discharge [RC] PER UNIT ROUTINE Care 12/16/16 12:45 Active - Assessment Assessment (Free Text/Narrative):: POD#1 - left TKA - Plan Plan (Free Text/Narrative):: 1. Hgb 11.5 today. 2. Xarelto for VTE prophylaxis. 3. Outpatient P.T. 4. Discharge to home today. Dr. Toro evaluated the pt today.
--- NOTE | 2016-12-19 11:42 | PCM.OPNOTE ---
- General Post-Op/Procedure Note Date of Surgery/Procedure: 12/15/16 Operative Procedure(s): left total knee arthroplasty Pre Op Diagnosis: left knee osteoarthrosis Post-Op Diagnosis: Same Anesthesia Technique: Local, MAC, Spinal Primary Surgeon: Wilton Toro Anesthesia Provider: Chayo Gandara Portable Feed Mill Operator: Mariah Cota Portable Feed Mill Operator: Tia Carrion EBL in mLs: 150 Complications: None Condition: Good
--- NOTE | 2016-12-19 12:58 | OR ---
DATE OF OPERATION: 12/15/2016 SURGEON: Wilton Toro MD OPERATION PERFORMED: Left total knee arthroplasty. PREOPERATIVE DIAGNOSIS: Left knee osteoarthrosis. POSTOPERATIVE DIAGNOSIS: Left knee osteoarthrosis. ANESTHESIA: Local MAC with spinal. ANESTHESIA PROVIDER: Dr. Chayo Gandara. ASSISTANTS: Mariah Cota PA-C and Tia Carrion LPN. ESTIMATED BLOOD LOSS: 150 mL. COMPLICATIONS: None. CONDITION: Stable. IMPLANTS: 1. [place] size 3 press-fit PS femur. 2. Raquel size 3 press-fit universal tibial base plate. 3. Raquel size 3, 9 mm PS X3 polyethylene. 4. Raquel 29 x 9 mm asymmetric press-fit patella. DESCRIPTION OF PROCEDURE: The patient was identified in the preoperative holding area. Proper site was marked and identified by the surgeon. The patient was taken back to the operating theater, where after adequate anesthesia, the patient's left lower extremity had a nonsterile tourniquet applied and it was then sterilely prepped and draped in the usual sterile fashion. OR time-out was performed. The patient received 2 g IV Ancef. At this time, the left lower extremity was then exsanguinated. Tourniquet was insufflated to 300 mmHg. Standard medial parapatellar incision was made. Medial parapatellar arthrotomy was created. Deep fibers of the MCL were raised and anterior fat pad was resected. Attention was turned to patella. Patella measured 22, was resected to a 13 for 29 x 9 mm patella. Drill holes were then drilled and found to be adequate. At this time, attention was turned to the distal femur. A drill hole was placed in the distal femur just anterior to PCL insertion. Intramedullary distal femoral cutting guide was then placed. An 8 mm was resected off the distal femur. Sizing guide was then placed. It was found to be a size 3 femur. Epicondylar access holes were drilled using [place]'s line and epicondyles as reference. A 4-in-1 cutting block was then placed and anterior and posterior chamfer cuts were then completed, and found to be adequate. Box cut was then placed for a size 3 and box cut was completed. Attention was turned to the tibia. Posterior, medial, and lateral retractors were placed and the extramedullary tibial cutting guide was then placed in the old footprint of the ACL. At this time, alignment was set for the center of the ankle and roughly 3 degrees posterior slope. A 9 mm resected off the unaffected lateral side. At this time, it was found to be an adequate resection. The medial lateral meniscus were then removed along with posterior osteophytes. The size 3 was found to have adequate coverage. At this time, trial implants were then placed. The patient had full knee flexion, extension, and full stability to varus valgus stress and alignment was roughly neutral. Patella was tracking centrally. At this time, the patient was noted to have good bone quality, so press-fit components could be used. At this time, the tibia was prepared and stamped and drilled for the press-fit component. Size 3 press-fit tibia was then impacted into place. A size 3 press-fit femur was then impacted into place. A 9 mm PS X3 polyethylene was impacted in place. The patient's knee was brought into full extension. At this time, the patella was not seating well, so at this time, we decided to cement the patella, where the cement was mixed on the back table and then the patellar component was then compressed with cement into the patella. Tourniquet was deflated. At this time, 3 L pulse lavage irrigation with Ancef were irrigated through the knee. Periarticular injection was then completed. Topical tranexamic acid and topical vancomycin powder were then placed. A #2 barbed suture was used for closure of the medial parapatellar arthrotomy, 2-0 Vicryl was used subcutaneously, and a running 3-0 Monocryl along with cranial was used for the skin. The patient was placed in a sterile soft dressing and sent to the PACU in stable condition. IMANI /[id number]
== END 2016-12-16 16:10 | disposition home or self-care (01) | DRG 302 ==
LOC: JD.MS 09:17
PROVIDERS: ADMIT Orthopaedic Surgery; ATTEND Orthopaedic Surgery
PROC: 0SRD0J9 Replacement of Left Knee Joint with Synthetic Substitute, Cemented, Open Approach (ICD-10-PCS; principal; 2016-12-15)
DX: M17.12 Unilateral primary osteoarthritis, left knee (principal); H54.7 Unspecified visual loss; R32 Unspecified urinary incontinence; L30.9 Dermatitis, unspecified; M50.20 Other cervical disc displacement, unspecified cervical region; Z96.651 Presence of right artificial knee joint; Z88.8 Allergy status to other drugs, medicaments and biological substances; Z79.899 Other long term (current) drug therapy
CPT/HCPCS: 01402; 36415; 73560-26-LT; 73560-LT; 80053; 85025; 94762; 97110-GP; 97116-GP; 97161-GP; 97165-GO; 97535-GO; 99238; 99253; A9270-GY; C1713; C1776; J0171; J0690; J0697; J1885; J2250; J2270; J2370; J2405; J2704; J2765; J3010; J3370; J3490; J7120

== ENCOUNTER 2016-12-27 14:52 | Emergency (ER) | payer BC ==
[2016-12-27 15:18] VITALS: BP 117/71
[2016-12-27] MEDS ORDERED: Sodium Chloride 0.9% 10 ML Syringe FLUSH PRN (15:38)
[2016-12-27] MEDS ORDERED: diphenhydrAMINE 50 MG Cap PO ONE (17:13)
[2016-12-27] MEDS ORDERED: Cephalexin 500 MG Cap PO ONE (17:13)
[2016-12-27] MEDS ORDERED: Loratadine 10 MG Tab PO ONE (17:13)
--- NOTE | 2016-12-27 17:26 | EDM.PDOC ---
ED HPI GENERAL MEDICAL PROBLEM - General Chief Complaint: Lower Extremity Injury/Pain Stated Complaint: POST-OP ISSUES, LEFT KNEE Time Seen by Provider: 12/27/16 15:00 Source of Information: Reports: Patient, RN Notes Reviewed - History of Present Illness INITIAL COMMENTS - FREE TEXT/NARRATIVE: 61-year-old lady comes in with increasing erythema and itchiness knee about 12 days status post left knee replacement. She did have a follow-up appointment at the clinic 4 days ago and was developing some redness and itchiness at that time. Since that visit symptoms have become much worse. All has quite severe itchiness all around the knee and even medial and lateral distal thigh as well. She noticed that there was some oozing developing underneath her dressing and decided she did best have this looked at today. She has had no chest pain or difficulty breathing, no fever or chills. She continues to have some knee discomfort but the itchiness today is much more bothersome. Left Knee Pain Score (Numeric/FACES): 5 - Related Data Allergies Allergy/AdvReac Type Severity Reaction Status Date / Time iodine Allergy Severe Rash Verified 12/27/16 15:21 Home Meds: Home Meds Cyclobenzaprine [Flexeril] 10 mg PO Q8H PRN #40 tablet 12/16/16 [Rx] Docusate Sodium [Colace] 100 mg PO BID #60 cap 12/16/16 [Rx] Ondansetron [Zofran ODT] 4 mg PO Q6H PRN #20 tab.dis 12/16/16 [Rx] Rivaroxaban [Xarelto] 10 mg PO DAILY #28 tablet 12/16/16 [Rx] Cephalexin 500 mg PO QID #30 capsule 12/27/16 [Rx] Hydrocodone/Acetaminophen [Hydrocodon-Acetaminophen 5-325] 1 tab PO DAILY PRN [History] Past Medical History HEENT History: Reports: Impaired Vision Cardiovascular History: Reports: None Respiratory History: Reports: None Gastrointestinal History: Reports: Other (See Below) Other Gastrointestinal History: post operative nausea and vomiting Genitourinary History: Reports: Urinary Incontinence Other OB/BYN History: 3vaginal deliveries, uterine fibroids Musculoskeletal History: Reports: Osteoarthritis, Other (See Below) Other Musculoskeletal History: bulging of cerical intervertebreal disc Neurological History: Reports: None Psychiatric History: Reports: None Endocrine/Metabolic History: Reports: None Hematologic History: Reports: None Immunologic History: Reports: None Oncologic (Cancer) History: Reports: None Dermatologic History: Reports: Eczema - Past Surgical History Head Surgeries/Procedures: Reports: None HEENT Surgical History: Reports: Tonsillectomy Cardiovascular Surgical History: Reports: None Respiratory Surgical History: Reports: None GI Surgical History: Reports: Appendectomy, Colonoscopy, EGD Female Surgical History: Reports: Hysterectomy, Other (See Below) Other Female Surgeries/Procedures: bladder sling Endocrine Surgical History: Reports: None Neurological Surgical History: Reports: None Musculoskeletal Surgical History: Reports: Arthroscopic Knee, Knee Replacement Other Musculoskeletal Surgeries/Procedures:: rt partial knee replacement, R meniscus surgery Oncologic Surgical History: Reports: None Social & Family History - Family History Family Medical History: Noncontributory Psychiatric: Reports: None - Tobacco Use Smoking Status *Q: Never Smoker Second Hand Smoke Exposure: No - Caffeine Use Caffeine Use: Reports: Coffee - Alcohol Use Days Per Week of Alcohol Use: 1 (couple times a month) - Recreational Drug Use Recreational Drug Use: No Drug Use in Last 12 Months: No Review of Systems - Review of Systems Review Of Systems: See Below Constitutional: Denies: Chills, Fever Eyes: Reports: No Symptoms Mouth/Throat: Reports: No Symptoms Respiratory: Denies: Shortness of Breath, Pleuritic Chest Pain Cardiovascular: Denies: Chest Pain GI/Abdominal: Denies: Abdominal Pain, Nausea, Vomiting Musculoskeletal: Reports: Joint Pain (She does have some discomfort of the left knee associated with her prior surgery but the major discomfort is along the dorsal aspect of the knee.), Joint Swelling (She does have moderate swelling of the left knee). Denies: Leg Pain, Foot Pain Skin: Reports: Erythema (She is quite intense erythema of the dorsal aspect of the knee), Other (Severe itchiness surrounding the left knee and also distal thigh medially and laterally) ED EXAM, GENERAL - Physical Exam Exam: See Below General Appearance: Alert, Mild Distress Throat/Mouth: Normal Inspection, Normal Oropharynx Head: Atraumatic. No: Facial Swelling Neck: Supple, Full Range of Motion Respiratory/Chest: No Respiratory Distress, Lungs Clear, Normal Breath Sounds Cardiovascular: Regular Rate, Rhythm Extremities: Limited Range of Motion (No pain with extension, moderate pain with flexion primarily dorsal aspect of the), Increased Warmth (Dorsal aspect of knee), Redness (Part intense erythema of the dorsal aspect of the left knee correlating with longitudinal elastic dressing over the incision, erythema does spread out medially and laterally then quite quickly fades away. There is diffuse tenderness along the dorsal aspect of the knee, very slight drainage from one location superior incision and a very small lesser amount inferior incision.). No: Leg Pain (There is no significant swelling of the calf, no warmth or erythema of the calf or distal leg) Neurological: Alert, Oriented, No Motor/Sensory Deficits Skin Exam: Warm, Dry, Normal Color Course - Vital Signs Last Recorded V/S: Last Vital Signs Temp 98.2 F 12/27/16 15:17 Pulse 99 12/27/16 15:17 Resp 15 12/27/16 15:17 BP 117/71 12/27/16 15:17 Pulse Ox 99 12/27/16 15:17 - Orders/Labs/Meds Orders: Active Orders 24 hr Category Date Time Status Peripheral IV Care [RC] . DIRECTED Care 12/27/16 15:39 Active CULTURE WOUND [RM] Stat Lab 12/27/16 16:00 Received Sodium Chloride 0.9% [Saline Flush] Med 12/27/16 15:38 Active 10 ml FLUSH ASDIRECTED PRN Peripheral IV Insertion Adult [OM.PC] Stat Oth 12/27/16 15:39 Ordered Medication Orders Sodium Chloride (Saline Flush) 10 ml FLUSH ASDIRECTED PRN PRN Reason: Keep Vein Open Last Admin: 12/27/16 16:29 Dose: 10 ml Labs: Laboratory Tests 12/27/16 12/27/16 Range/Units 16:25 16:25 WBC 10.91 H (3.98-10.04) K/mm3 RBC 3.99 (3.98-5.22) M/mm3 Hgb 11.8 (11.2-15.7) gm/L Hct 36.9 (34.1-44.9) % MCV 92.5 (79.4-94.8) fl MCH 29.6 (25.6-32.2) pg MCHC 32.0 L (32.2-35.5) g/dl RDW Std Deviation 43.6 (36.4-46.3) fL Plt Count 497 H (182-369) K/mm3 MPV 9.8 (9.4-12.3) fl Neut % (Auto) 56.8 (34.0-71.1) % Lymph % (Auto) 28.3 (19.3-51.7) % [place] % (Auto) 8.6 (4.7-12.5) % Eos % (Auto) 5.2 (0.7-5.8) Baso % (Auto) 0.8 (0.1-1.2) % Neut # (Auto) 6.19 H (1.56-6.13) K/mm3 Lymph # (Auto) 3.09 (1.18-3.74) K/mm3 [place] # (Auto) 0.94 H (0.24-0.36) K/mm3 Eos # (Auto) 0.57 H (0.04-0.36) K/mm3 Baso # (Auto) 0.09 H (0.01-0.08) K/mm3 Sodium 140 (136-145) mEq/L Potassium 3.8 (3.5-5.1) mEq/L Chloride 103 (98-107) mEq/L Carbon Dioxide 30 (21-32) mEq/L Anion Gap 10.8 (5-15) BUN 12 (7-18) mg/dL Creatinine 0.8 (0.55-1.02) mg/dL Est Cr Clr Drug Dosing 54.39 mL/min Estimated GFR (MDRD) > 60 (>60) mL/min BUN/Creatinine Ratio 15.0 (14-18) Glucose 100 (74-106) mg/dL Calcium 11.3 H (8.5-10.1) mg/dL Total Bilirubin 0.3 (0.2-1.0) mg/dL AST 24 (15-37) U/L ALT 26 (14-59) U/L Alkaline Phosphatase 89 (46-116) U/L C-Reactive Protein 1.9 H* (<1.0) mg/dL Total Protein 7.5 (6.4-8.2) g/dl Albumin 3.5 (3.4-5.0) g/dl Globulin 4.0 gm/dL Albumin/Globulin Ratio 0.9 L (1-2) Meds: Medications Generic Name Dose Route Start Last Admin Trade Name Freq PRN Reason Stop Dose Admin Sodium Chloride 10 ml 12/27/16 15:38 12/27/16 16:29 Saline Flush FLUSH 10 ml ASDIRECTED PRN Administration Keep Vein Open Discontinued Medications Generic Name Dose Route Start Last Admin Trade Name Elissa PRN Reason Stop Dose Admin Cephalexin 500 mg 12/27/16 17:13 12/27/16 17:25 Keflex PO 12/27/16 17:14 500 mg ONETIME ONE Administration Diphenhydramine HCl 50 mg 12/27/16 17:13 12/27/16 17:25 Benadryl PO 12/27/16 17:14 50 mg ONETIME ONE Administration Loratadine 10 mg 12/27/16 17:13 12/27/16 17:25 Claritin PO 12/27/16 17:14 10 mg ONETIME ONE Administration - Re-Assessments/Exams Free Text/Narrative Re-Assessment/Exam: 12/27/16 17:41 White blood count very mildly elevated at 10,900 without left shift, C-reactive protein 1.9. Findings on exam and lab results discussed with , her orthopedist. This looks like primarily elasticity skin sensitivity. She has had quite severe itchiness around the area of the current dressing along the dorsal aspect of her knee. There may well be a component of cellulitis as well. Will Start her on cephalexin 500 mg 4 times a day. We have applied simple sterile dressing. Have given Benadryl 50 mg orally and Claritin 10 mg orally. Discharge instructions as documented. Departure - Departure Time of Disposition: 17:21 Disposition: Home, Self-Care 01 Condition: Fair Clinical Impression: Allergic reaction Qualifiers: Encounter type: initial encounter Qualified Code(s): T78.40XA - Allergy, unspecified, initial encounter Cellulitis Qualifiers: Site of cellulitis: extremity Site of cellulitis of extremity: lower extremity - Discharge Information Prescriptions: Cephalexin 500 mg PO QID #30 capsule Instructions: Anaphylactic Reaction Referrals: Wilton Toro MD [Primary Care Provider] - Forms: ED Department Discharge Additional Instructions: Cephalexin antibiotic 500 mg 4 times daily, you have been given your initial dose here in the ED. Take your next dose at bedtime tonight. You've been given Benadryl 50 mg orally and also Claritin 10 mg orally while here in the ED. You may take an additional 25 or 50 mg benadryl dose at bedtime tonight if needed for continued itchiness. Continue Claritin 10 mg daily. You may leave the dressing we have placed on until your follow-up appointment this coming Thursday at the clinic. If you start running a fever or symptoms otherwise worsening in any way return to ED for further evaluation. - My Orders Last 24 Hours: My Active Orders 12/27/16 15:38 Sodium Chloride 0.9% [Saline Flush] 10 ml FLUSH ASDIRECTED PRN 12/27/16 15:39 Peripheral IV Care [RC] . DIRECTED Peripheral IV Insertion Adult [OM.PC] Stat 12/27/16 16:00 CULTURE WOUND [RM] Stat - Assessment/Plan Last 24 Hours: My Active Orders 12/27/16 15:38 Sodium Chloride 0.9% [Saline Flush] 10 ml FLUSH ASDIRECTED PRN 12/27/16 15:39 Peripheral IV Care [RC] . DIRECTED Peripheral IV Insertion Adult [OM.PC] Stat 12/27/16 16:00 CULTURE WOUND [RM] Stat
== END 2016-12-27 17:50 | disposition home or self-care (01) ==
LOC: JD.ED 14:52
DX: T78.40XA Allergy, unspecified, initial encounter (principal); L03.116 Cellulitis of left lower limb; M19.90 Unspecified osteoarthritis, unspecified site; Z91.09 Other allergy status, other than to drugs and biological substances; Z79.899 Other long term (current) drug therapy
CPT/HCPCS: 36415; 80053; 85025; 86140; 87070; 99284; A9270; J7050

== ENCOUNTER 2018-04-28 08:31 | Emergency (ER) | payer BC ==
[2018-04-28 08:42] VITALS: BP 169/89
[2018-04-28] MEDS ORDERED: Aspirin 81 MG Tab.Chew PO ONE (09:03)
[2018-04-28] MEDS ORDERED: Sodium Chloride 0.9% 10 ML Syringe FLUSH PRN (09:03)
--- NOTE | 2018-04-28 09:52 | CR ---
Chest: Portable view of the chest was obtained. Comparison: Prior chest x-ray of 05/04/15. Heart size and mediastinum are normal. Lungs are clear. Bony structures are unremarkable. Impression: 1. Nothing acute is seen on portable chest x-ray. Diagnostic code #1
--- NOTE | 2018-04-28 12:37 | EDM.PDOC ---
ED HPI GENERAL MEDICAL PROBLEM - General Chief Complaint: Chest Pain Stated Complaint: CHEST PAIN Time Seen by Provider: 04/28/18 08:39 Source of Information: Reports: Patient History Limitations: Reports: No Limitations - History of Present Illness INITIAL COMMENTS - FREE TEXT/NARRATIVE: The patient presents with chest pain. This started this morning after she was eating. She has pain to the left neck and left arm. She has no shortness of breath, nausea, or vomiting. She has no fever but she does have a cough. She has no swelling in her legs or pain. She has no history of heart disease, hypertension, hypercholesterolemia or diabetes. She does not smoke. Her father had a heart attack years ago. Onset: Sudden Duration: Hour(s): Location: Reports: Chest Quality: Reports: Sharp Severity: Moderate Improves with: Reports: None Worsens with: Reports: None Associated Symptoms: Reports: Chest Pain, Cough. Denies: Fever/Chills, Headaches, Nausea/Vomiting, Shortness of Breath Chest Pain Score (Numeric/FACES): 9 - Related Data Allergies Allergy/AdvReac Type Severity Reaction Status Date / Time iodine Allergy Severe Rash Verified 04/28/18 08:42 latex Allergy Rash Verified 04/28/18 08:42 Home Meds: Home Meds Cyclobenzaprine [Flexeril] 10 mg PO Q8H PRN #40 tablet 12/16/16 [Rx] Docusate Sodium [Colace] 100 mg PO BID #60 cap 12/16/16 [Rx] Ondansetron [Zofran ODT] 4 mg PO Q6H PRN #20 tab.dis 12/16/16 [Rx] Rivaroxaban [Xarelto] 10 mg PO DAILY #28 tablet 12/16/16 [Rx] Hydrocodone/Acetaminophen [Hydrocodon-Acetaminophen 5-325] 1 tab PO DAILY PRN [History] cephALEXin [Cephalexin] 500 mg PO QID #30 capsule 12/27/16 [Rx] Past Medical History HEENT History: Reports: Impaired Vision Cardiovascular History: Reports: None Respiratory History: Reports: None Gastrointestinal History: Reports: Other (See Below) Other Gastrointestinal History: post operative nausea and vomiting Genitourinary History: Reports: Urinary Incontinence 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: 3vaginal deliveries, uterine fibroids Musculoskeletal History: Reports: Osteoarthritis, Other (See Below) Other Musculoskeletal History: bulging of cerical intervertebreal disc Neurological History: Reports: None Psychiatric History: Reports: None Endocrine/Metabolic History: Reports: None Hematologic History: Reports: None Immunologic History: Reports: None Oncologic (Cancer) History: Reports: None Dermatologic History: Reports: Eczema - Past Surgical History Head Surgeries/Procedures: Reports: None HEENT Surgical History: Reports: Tonsillectomy Cardiovascular Surgical History: Reports: None Respiratory Surgical History: Reports: None GI Surgical History: Reports: Appendectomy, Colonoscopy, EGD Female Surgical History: Reports: Hysterectomy, Other (See Below) Other Female Surgeries/Procedures: bladder sling Endocrine Surgical History: Reports: None Neurological Surgical History: Reports: None Musculoskeletal Surgical History: Reports: Arthroscopic Knee, Knee Replacement Other Musculoskeletal Surgeries/Procedures:: rt partial knee replacement, R meniscus surgery Oncologic Surgical History: Reports: None Social & Family History - Family History Family Medical History: Noncontributory Psychiatric: Reports: None - Tobacco Use Smoking Status *Q: Never Smoker - Caffeine Use Caffeine Use: Reports: Coffee, Tea - Recreational Drug Use Recreational Drug Use: No ED ROS GENERAL - Review of Systems Review Of Systems: See Below Constitutional: Reports: No Symptoms HEENT: Reports: No Symptoms Respiratory: Reports: Cough. Denies: Shortness of Breath Cardiovascular: Reports: Chest Pain Endocrine: Reports: No Symptoms GI/Abdominal: Reports: No Symptoms : Reports: No Symptoms Musculoskeletal: Reports: No Symptoms ED EXAM, GENERAL - Physical Exam Exam: See Below Exam Limited By: No Limitations General Appearance: Alert, No Apparent Distress Ears: Normal External Exam Nose: Normal Inspection Head: Atraumatic, Normocephalic Neck: Normal Inspection Respiratory/Chest: No Respiratory Distress, Lungs Clear, Normal Breath Sounds Cardiovascular: Regular Rate, Rhythm, No Edema, No Murmur GI/Abdominal: Soft, Non-Tender, No Organomegaly, No Mass Back Exam: Normal Inspection Extremities: Normal Inspection Neurological: Alert, Oriented, No Motor/Sensory Deficits EKG INTERPRETATION EKG Date: 04/28/18 Time: 08:40 Rhythm: NSR Rate (Beats/Min): 75 [place]: Normal P-Wave: Present QRS: Normal ST-T: Normal QT: Normal Course - Vital Signs Last Recorded V/S: Last Vital Signs Temp 97.2 F 04/28/18 08:39 Pulse 78 04/28/18 08:39 Resp 18 04/28/18 08:39 BP 169/89 H 04/28/18 08:39 Pulse Ox 98 04/28/18 08:39 - Orders/Labs/Meds Orders: Active Orders 24 hr Category Date Time Status Cardiac Monitoring [RC] . DIRECTED Care 04/28/18 09:04 Active EKG Documentation Completion [RC] ASDIRECTED Care 04/28/18 11:25 Active EKG Documentation Completion [RC] STAT Care 04/28/18 09:07 Active Peripheral IV Care [RC] . DIRECTED Care 04/28/18 09:07 Active Sodium Chloride 0.9% [Saline Flush] Med 04/28/18 09:03 Active 10 ml FLUSH ASDIRECTED PRN Peripheral IV Insertion Adult [OM.PC] Stat Oth 04/28/18 09:03 Ordered EKG 12 Lead [EK] Stat Ther 04/28/18 11:25 Ordered Medication Orders Sodium Chloride (Saline Flush) 10 ml FLUSH ASDIRECTED PRN PRN Reason: Keep Vein Open Last Admin: 04/28/18 09:14 Dose: 10 ml Labs: Laboratory Tests 04/28/18 04/28/18 04/28/18 Range/Units 08:40 08:40 08:40 WBC 6.43 (3.98-10.04) K/mm3 RBC 5.19 (3.98-5.22) M/mm3 Hgb 15.1 (11.2-15.7) gm/L Hct 47.2 H (34.1-44.9) % MCV 90.9 (79.4-94.8) fl MCH 29.1 (25.6-32.2) pg MCHC 32.0 L (32.2-35.5) g/dl RDW Std Deviation 43.6 (36.4-46.3) fL Plt Count 230 (182-369) K/mm3 MPV 11.1 (9.4-12.3) fl Neut % (Auto) 53.7 (34.0-71.1) % Lymph % (Auto) 34.1 (19.3-51.7) % [place] % (Auto) 10.0 (4.7-12.5) % Eos % (Auto) 1.4 (0.7-5.8) Baso % (Auto) 0.6 (0.1-1.2) % Neut # (Auto) 3.46 (1.56-6.13) K/mm3 Lymph # (Auto) 2.19 (1.18-3.74) K/mm3 [place] # (Auto) 0.64 H (0.24-0.36) K/mm3 Eos # (Auto) 0.09 (0.04-0.36) K/mm3 Baso # (Auto) 0.04 (0.01-0.08) K/mm3 D-Dimer, Quantitative 0.50 (0.19-0.50) mg/L Sodium 143 (136-145) mEq/L Potassium 4.0 (3.5-5.1) mEq/L Chloride 103 (98-107) mEq/L Carbon Dioxide 28 (21-32) mEq/L Anion Gap 16.0 H (5-15) BUN 12 (7-18) mg/dL Creatinine 0.9 (0.55-1.02) mg/dL Est Cr Clr Drug Dosing 47.75 mL/min Estimated GFR (MDRD) > 60 (>60) mL/min BUN/Creatinine Ratio 13.3 L (14-18) Glucose 97 (74-106) mg/dL Calcium 10.2 H (8.5-10.1) mg/dL Total Bilirubin 0.3 (0.2-1.0) mg/dL AST 23 (15-37) U/L ALT 26 (14-59) U/L Alkaline Phosphatase 74 (46-116) U/L Troponin I < 0.017 (0.00-0.056) ng/mL Total Protein 8.5 H (6.4-8.2) g/dl Albumin 4.3 (3.4-5.0) g/dl Globulin 4.2 gm/dL Albumin/Globulin Ratio 1.0 (1-2) 04/28/18 Range/Units 11:33 WBC (3.98-10.04) K/mm3 RBC (3.98-5.22) M/mm3 Hgb (11.2-15.7) gm/L Hct (34.1-44.9) % MCV (79.4-94.8) fl MCH (25.6-32.2) pg MCHC (32.2-35.5) g/dl RDW Std Deviation (36.4-46.3) fL Plt Count (182-369) K/mm3 MPV (9.4-12.3) fl Neut % (Auto) (34.0-71.1) % Lymph % (Auto) (19.3-51.7) % [place] % (Auto) (4.7-12.5) % Eos % (Auto) (0.7-5.8) Baso % (Auto) (0.1-1.2) % Neut # (Auto) (1.56-6.13) K/mm3 Lymph # (Auto) (1.18-3.74) K/mm3 [place] # (Auto) (0.24-0.36) K/mm3 Eos # (Auto) (0.04-0.36) K/mm3 Baso # (Auto) (0.01-0.08) K/mm3 D-Dimer, Quantitative (0.19-0.50) mg/L Sodium (136-145) mEq/L Potassium (3.5-5.1) mEq/L Chloride (98-107) mEq/L Carbon Dioxide (21-32) mEq/L Anion Gap (5-15) BUN (7-18) mg/dL Creatinine (0.55-1.02) mg/dL Est Cr Clr Drug Dosing mL/min Estimated GFR (MDRD) (>60) mL/min BUN/Creatinine Ratio (14-18) Glucose (74-106) mg/dL Calcium (8.5-10.1) mg/dL Total Bilirubin (0.2-1.0) mg/dL AST (15-37) U/L ALT (14-59) U/L Alkaline Phosphatase (46-116) U/L Troponin I < 0.017 (0.00-0.056) ng/mL Total Protein (6.4-8.2) g/dl Albumin (3.4-5.0) g/dl Globulin gm/dL Albumin/Globulin Ratio (1-2) Meds: Medications Generic Name Dose Route Start Last Admin Trade Name Freq PRN Reason Stop Dose Admin Sodium Chloride 10 ml 04/28/18 09:03 04/28/18 09:14 Saline Flush FLUSH 10 ml ASDIRECTED PRN Administration Keep Vein Open Discontinued Medications Generic Name Dose Route Start Last Admin Trade Name Elissa PRN Reason Stop Dose Admin Aspirin 324 mg 04/28/18 09:03 04/28/18 09:13 Aspirin PO 04/28/18 09:04 324 mg ONETIME ONE Administration - Re-Assessments/Exams Free Text/Narrative Re-Assessment/Exam: 04/28/18 12:37 I ordered an IV saline lock, EKG, CXR, labs and aspirin. Her EKG shows a NSR with no acute changes. Her CXR looks good. Her CBC and CMP look good. Her troponin is negative. She fells better. I have ordered a 3 hour repeat troponin and that was negative. I do not feel this is cardiac. I will discharge her home Departure - Departure Time of Disposition: 12:45 Disposition: Home, Self-Care 01 Condition: Good Clinical Impression: Atypical chest pain Referrals: Milvia Hendrix MD [Primary Care Provider] - 1 Week Forms: ED Department Discharge Additional Instructions: Take tylenol or motrin for any pain. Follow up with Dr Olivares within 1 week. Please return if you are worse. - My Orders Last 24 Hours: My Active Orders 04/28/18 09:03 Sodium Chloride 0.9% [Saline Flush] 10 ml FLUSH ASDIRECTED PRN Peripheral IV Insertion Adult [OM.PC] Stat 04/28/18 09:04 Cardiac Monitoring [RC] . DIRECTED 04/28/18 09:07 EKG Documentation Completion [RC] STAT Peripheral IV Care [RC] . DIRECTED 04/28/18 11:25 EKG Documentation Completion [RC] ASDIRECTED EKG 12 Lead [EK] Stat - Assessment/Plan Last 24 Hours: My Active Orders 04/28/18 09:03 Sodium Chloride 0.9% [Saline Flush] 10 ml FLUSH ASDIRECTED PRN Peripheral IV Insertion Adult [OM.PC] Stat 04/28/18 09:04 Cardiac Monitoring [RC] . DIRECTED 04/28/18 09:07 EKG Documentation Completion [RC] STAT Peripheral IV Care [RC] . DIRECTED 04/28/18 11:25 EKG Documentation Completion [RC] ASDIRECTED EKG 12 Lead [EK] Stat
== END 2018-04-28 12:57 | disposition home or self-care (01) ==
LOC: JD.ED 08:31
DX: R07.89 Other chest pain (principal); Z79.899 Other long term (current) drug therapy; Z91.09 Other allergy status, other than to drugs and biological substances; Z91.040 Latex allergy status
CPT/HCPCS: 36415; 71045; 80053; 84484; 85025; 85379; 93005; 99285; A9270; 93010; 99284